=== PATIENT | male | born 1945 | race Caucasian/White ===

== ENCOUNTER 2017-07-09 05:59 | Day surgery (SDC) | payer OTHER ==
[~2017-07-09] VITALS: Ht 165.1 cm; Wt 88.6 kg
[~2017-07-09 05:59] MED LIST: AMBI10TA PO; ATOR10TA15 PO; BACT800T5 PO; DIPH2.5T14 PO; FLUO20CA4 PO; LACT PO; LISI20TA PO
[2017-07-09 06:43] VITALS: BP 130/84; PULSE 90; RESP 20; TEMP 97.8; O2SAT 93
[2017-07-09] MEDS ORDERED: TYLE325T PO (06:43)
[2017-07-09] MEDS ORDERED: FLUO20CA12 PO (06:43)
[2017-07-09] MEDS ORDERED: VANCOMYCIN 1000 MG/NS 250 ML - implanted port/tunneled catheter IV SCH ×2 (07:00)
[2017-07-09] MEDS ORDERED: SODIUM CHLORIDE 0.9% 1000 ML IV SCH (07:00)
[2017-07-09] MEDS ORDERED: CHLORHEXIDINE GLUCONATE 2 % 1 PACK (2 CLOTHS) TOPICAL SCH (07:00)
[2017-07-09] MEDS ORDERED: ceFAZolin 2 GM PREMIX 50 ML - implanted port/tunneled catheter insertion IV SCH (07:00)
[2017-07-09] MEDS ORDERED: POVIDONE IODINE 5% (ANTISEPSIS KIT) 4 APPLICATIONS EACH NARE SCH (07:00)
[2017-07-09 07:01] LABS: AUTOMATED NEUTROPHIL # 7.3 TH/MM3 (1.8-7.7); BASOPHIL # 0.1 TH/MM3 (0-0.2); BASOPHIL % 0.8 % (0.0-2.0); EOSINOPHIL # 0.4 TH/MM3 (0-0.4); EOSINOPHIL % 3.4 % (0.0-4.0); HEMATOCRIT 41.9 % (39.0-51.0); HEMO FLAGS DIFF FINAL; LYMPH % 19.7 % (9.0-44.0); LYMPHOCYTE # 2.1 TH/MM3 (1.0-4.8); MEAN CELL VOLUME 87.3 FL (80.0-100.0); MEAN CORPUSCULAR HEMOGLOBIN 29.9 PG (27.0-34.0); MEAN CORPUSCULAR HGB CONC 34.2 % (32.0-36.0); MONO % 6.2 % (0.0-8.0); NEUT % 69.9 % (16.0-70.0); PLATELET COUNT 209 TH/MM3 (150-450); RED CELL DISTRIBUTION WIDTH 13.7 % (11.6-17.2); WHITE BLOOD COUNT 10.5 TH/MM3 (4.0-11.0)
[2017-07-09 07:11] LABS: APTT (PATIENT) 24.5 SEC (24.3-30.1); INTERNATIONAL NORMALIZED RATIO 1.1 RATIO; PROTHROMBIN TIME - PATIENT 10.7 SEC (9.8-11.6)
[2017-07-09] MEDS ORDERED: MIDAZOLAM HCL 2 MG/2 ML VIAL ONE (07:43)
[2017-07-09] MEDS ORDERED: LIDOCAINE 1%/EPINEPHrine 1:100,000 SOLN 20 ML VIAL ONE (08:08)
[2017-07-09 08:45] VITALS: BP 129/73; PULSE 85; RESP 18; TEMP 97.8; O2SAT 93
[2017-07-09 09:00] VITALS: BP 123/82; PULSE 81; RESP 18; O2SAT 95
--- NOTE | 2017-07-09 09:23 | PD.RAD ---
Post Procedure Progress Note Pre Procedure Diagnosis: (1) Esophageal cancer Post Procedure Diagnosis: (1) Esophageal cancer Procedure Date: Jul 09, 2017 Supervising Radiologist: Edward Acosta Proceduralist/Assist: Aby Meade RT(R) Estimated blood loss: none Anesthesia: Local, Conscious Sedation Plan of Activity Patient to Unit: ROPU Patient Condition: Good See PACS Report for procedural detail/treatment Central Venous Access Device Procedure 1 Right Internal Jugular Infusaport Placement single lumen Setswana: 8 Edward Acosta MD Jul 09, 2017 09:23
[2017-07-09 09:30] VITALS: BP 104/82; PULSE 86; RESP 18; O2SAT 93
[2017-07-09] MEDS ORDERED: SODIUM CHLORIDE 0.9% FLUSH 10 ML FLUSH IVF PRN (09:30)
--- NOTE | 2017-07-09 09:37 | RADRPT ---
EXAM DATE/TIME: 07/09/2017 09:14 [facility] COMPARISON: No previous studies available for comparison. INDICATIONS : Patient with esophageal mass. Will need chemotherapy. MEDICAL HISTORY : 1. Esophageal mass 2. skin ca 3. HTN 4. former smoker SURGICAL HISTORY : 1. Tonsilectomy 2. left shoulder repair ENCOUNTER: Initial ACUITY: 3 weeks PAIN SCORE: 0/10 FLUORO TIME: 0.8 minutes IMAGE SERIES: 1 SEDATION TIME: 30 minutes ACCESS: Right internal jugular vein SEDATION: 1.) 4 mg midazolam (Versed) IV 2.) 200 mcg fentanyl (Sublimaze) IV Prophylactic antibiotics were administered with appropriate pre-procedure timing. Vancomycin within 2 hours of procedure, Ancef (or alternative) within 1 hour of procedure. DEVICE: 1. 8 [place] single lumen Smart Port PROCEDURE : 1. Continuous pulse oximetry and EKG monitoring. 2. Intravenous conscious sedation. 3. Ultrasound guidance for venous access. 4. Fluoroscopic guided implantable central venous port placement. The patient was placed supine. The neck was prepped in sterile fashion. Full sterile technique was u sed, including cap, mask, sterile gloves and gown, and a large sterile sheet. Hand hygiene and 2% ch lorhexidine Betadine was utilized per protocol for cutaneous antisepsis with appropriate dry time for site. Sterile gel and sterile probe cover were utilized for ultrasound guidance. The skin and sub cutaneous tissues were infiltrated with local anesthetic solution. Under direct ultrasound guidance, central venous access was accomplished in the targeted vessel. The ultrasound images depicting access guidance were stored and saved to PACS for permanent record. A s ubcutaneous pocket was created using blunt dissection. The port was introduced to the pocket. The c atheter tubing was fed through a subcutaneous tunnel to the venotomy site. The catheter tubing was c ut to a suitable length and then was introduced through a valved Peel-Away sheath and positioned with catheter tubing tip at the cavo-atrial junction level. The pocket incision was closed with subcutic ular Vicryl suture. Steri-Strips were applied. The port was flushed and locked with heparin solutio n per protocol. Sterile dressing was applied to the site. The patient tolerated the procedure well. Conscious sedation was performed with the prescribed dosages and duration as above in the presence of an independent trained radiology nurse to assist in the monitoring of the patient. EKG and oximetry remained stable throughout the procedure. The patient tolerated the procedure well and there were no complications. The patient was sent to post anesthesia recovery in stable condition. CONCLUSION: Uncomplicated ultrasound and fluoroscopic guided implanted central venous port catheter placement as described in detail above. An 8 [place] Citizen Power port was placed. Edward Acosta MD on July 09, 2017 at 9:36 Board Certified Radiologist. This report was verified electronically.
[2017-07-09 10:00] VITALS: BP 100/75; PULSE 83; RESP 18; O2SAT 93
[2017-07-09 10:47] VITALS: BP 113/80; PULSE 85; RESP 18; O2SAT 93
== END 2017-07-09 10:51 | disposition home or self-care (01) ==
LOC: HRIP 05:59 → HROP 05:59
PROVIDERS: ATTEND Internal Medicine
DX: Z45.2 Encounter for adjustment and management of vascular access device (principal); C15.9 Malignant neoplasm of esophagus, unspecified; I10 Essential (primary) hypertension; Z79.01 Long term (current) use of anticoagulants
CPT/HCPCS: 36561; 76937; 77001; 85025; 85610; 85730; 99152; 99153; C1788; J0690; J1642; J2250; J3010; J3370; J7030; J7050

== ENCOUNTER 2017-07-25 08:23 | Day surgery (SDC) | payer MEDICARE ==
[~2017-07-25] VITALS: Ht 165.1 cm; Wt 86.8 kg
[~2017-07-25 08:23] MED LIST changes: -BACT800T5 PO; -DIPH2.5T14 PO; +FLUO20CA12 PO; -FLUO20CA4 PO; -LACT PO; +TYLE325T PO
[2017-07-25] MEDS ORDERED: IOHEXOL 350 MG/ML 50 ML BTL (for RAD DIAG) G-TUBE ONE (08:24)
[2017-07-25 08:43] VITALS: BP 148/82; PULSE 74; RESP 20; TEMP 97.7; O2SAT 96
[2017-07-25] MEDS ORDERED: SODIUM CHLORIDE 0.9% 1000 ML IV SCH (09:00)
[2017-07-25] MEDS ORDERED: ceFAZolin 2 GM PREMIX 50 ML - gastrostomy and jejunostomy initial insertion IV SCH (09:15)
[2017-07-25] MEDS ORDERED: GLUCAGON 1 MG/ML VIAL ONE (10:56)
[2017-07-25] MEDS ORDERED: MIDAZOLAM HCL 2 MG/2 ML VIAL ONE (10:56)
--- NOTE | 2017-07-25 11:50 | PD.RAD ---
Post Procedure Progress Note Pre Procedure Diagnosis: (1) Esophageal cancer Post Procedure Diagnosis: (1) Esophageal cancer Procedure Date: Jul 25, 2017 Supervising Radiologist: Anshul Lares Proceduralist/Assist: Ramu Silva, RT(R), RT Jeffrey(R)() Anesthesia: Local, Analgesia, Conscious Sedation Plan of Activity Patient to Unit: ROPU Patient Condition: Good See PACS Report for procedural detail/treatment Feeding Tube Gastrostomy Placement [place]: 18 Anshul Lares MD Jul 25, 2017 11:49
[2017-07-25 11:55] VITALS: BP 108/76; PULSE 46; RESP 20; TEMP 98.2; O2SAT 96
[2017-07-25 12:10] VITALS: BP 113/73; PULSE 72; RESP 18; O2SAT 91
[2017-07-25 12:40] VITALS: BP 99/71; PULSE 95; RESP 16; O2SAT 95
[2017-07-25 13:10] VITALS: BP 108/66; PULSE 71; RESP 18; O2SAT 90
[2017-07-25 13:40] VITALS: BP 113/71; PULSE 71; RESP 18; O2SAT 94
[2017-07-25] MEDS ORDERED: SODIUM CHLORIDE 0.9% FLUSH 10 ML FLUSH IV FLUSH PRN (14:30)
--- NOTE | 2017-07-25 16:51 | RADRPT ---
EXAM DATE/TIME: 07/25/2017 12:22 [facility] COMPARISON: No previous studies available for comparison. INDICATIONS : Patient presents with esophageal cancer in need of gastrostomy tube placement for nutrition. MEDICAL HISTORY : High lipids Esophageal mass Skin cancer HTN Former smoker SURGICAL HISTORY : Tonsillectomy Carpal tunnel Left shoulder surgery ENCOUNTER: Initial ACUITY: 1 month PAIN SCORE: 0/10 LOCATION: N/A FLUORO TIME: 3.6 minutes IMAGE SERIES: 2 SEDATION TIME: 30 minutes CONTRAST: 20 cc Omnipaque (iohexol) 350 MEDICATION(S): 1.) 2.5 mg midazolam (Versed) IV 2.) 125 mcg Fentanyl (Sublimaze) IV 3.) 1 mg glucagon (Gluca-Gen) IV DEVICE(S): 1.) 18 Fr gastrostomy tube PROCEDURE : 1. Limited abdominal ultrasound. 2. Fluoroscopically guided gastrostomy tube placement. 3. Conscious sedation with continuous EKG and oximetry monitoring. The risks, benefits and alternatives to the procedure were explained and verbal and written consent w as obtained. The site was prepped in sterile fashion. Full sterile technique was used, including ca p, mask, sterile gloves and gown and a large sterile sheet. Hand hygiene and 2% chlorhexidine and/or betadine/alcohol prep was utilized per protocol for cutaneous antisepsis. The skin and subcutaneous tissues were infiltrated with local anesthetic solution. Sterile gel and sterile probe cover were u tilized for ultrasound guidance. Ultrasound was used to kameron the position of the liver. The stomach was insufflated with room air. Th ree percutaneous fasteners were placed to secure the anterior gastric wall. A small incision was made between the fasteners. The stomach was accessed with an 18 gauge needle. A n 0.035 wire was advanced into the small bowel. The tract was dilated. The gastrostomy tube was int roduced through a peel-away sheath. The position was confirmed with an injection of contrast. Conscious sedation was performed with the prescribed dosages and duration as above in the presence of an independent trained radiology nurse to assist in the monitoring of the patient. EKG and oximetry remained stable throughout the procedure. The patient tolerated the procedure well and there were n o complications. The patient was sent to post anesthesia recovery in stable condition. CONCLUSION: Uncomplicated gastrostomy tube placement as above. Anshul Lares MD on July 25, 2017 at 16:48 Board Certified Radiologist. This report was verified electronically.
== END 2017-07-25 14:40 | disposition home or self-care (01) ==
LOC: HROP 08:23 → HRIP 08:24 → HROP 14:40
PROVIDERS: ATTEND Internal Medicine
DX: C15.9 Malignant neoplasm of esophagus, unspecified (principal); E78.5 Hyperlipidemia, unspecified; I10 Essential (primary) hypertension; Z87.891 Personal history of nicotine dependence; R13.10 Dysphagia, unspecified; Z85.828 Personal history of other malignant neoplasm of skin
CPT/HCPCS: 49440; 99152; 99153; C1769; C1887; J1610; J1642; J2250; J3010; Q9967

== ENCOUNTER 2017-09-13 09:57 | Day surgery (SDC) | payer MEDICARE ==
[2017-09-13 10:15] VITALS: BP 137/91; PULSE 99; RESP 20; TEMP 96.3; O2SAT 92
== END 2017-09-13 10:30 | disposition home or self-care (01) ==
LOC: HROP 09:57 → HRIP 09:58 → HROP 10:30
PROVIDERS: ATTEND Radiology Radiation Oncology
DX: C15.5 Malignant neoplasm of lower third of esophagus (principal)